=== PATIENT | male | born 1960 | race Caucasian/White ===

== ENCOUNTER 2021-11-03 05:46 | Observation (INO) ==
[2021-11-03] MEDS ORDERED: SODIUM PHOSPHATE ENEMA 133 ML BOTTLE RECTAL ONE (06:00)
[2021-11-03] MEDS ORDERED: ALVIMOPAN 12 MG CAPSULE PO ONE (06:00)
[2021-11-03] MEDS ORDERED: cefTRIAXone 1,000 MG in SODIUM CHLORIDE 0.9% 100 ML IV ONE (06:00)
[2021-11-03] MEDS ORDERED: fentaNYL 100 MCG/2 ML VIAL ONE ×2 (06:20→10:24)
[2021-11-03] MEDS ORDERED: ROCURONIUM 50 MG/5 ML VIAL IV ONE (06:25)
[2021-11-03] MEDS ORDERED: SUCCINYLCHOLINE 200 MG/10 ML VIAL ONE (06:25)
[2021-11-03] MEDS ORDERED: LIDOCAINE 2% 5 ML VIAL ONE (06:25)
[2021-11-03] MEDS ORDERED: propofoL 200 MG/20 ML VIAL IV ONE ×2 (06:25→09:30)
[2021-11-03] MEDS ORDERED: ONDANSETRON 4 MG/2 ML VIAL ONE (06:25)
[2021-11-03] MEDS ORDERED: MIDAZOLAM 2 MG/2 ML VIAL ONE (06:30)
[2021-11-03] MEDS ORDERED: FAMOTIDINE 20 MG TABLET ONE (06:38)
[2021-11-03] MEDS ORDERED: FAMOTIDINE 20 MG TABLET PO ONE (06:44)
[2021-11-03] MEDS: LACTATED RINGERS 1,000 ML IV SCH (06:45)
[2021-11-03] MEDS ORDERED: ePHEDrine 50 MG/ML VIAL ONE ×2 (08:04→12:23)
[2021-11-03 08:30] LABS: Hyaline Casts,Urine 1 /LPF (0-3); Mucus,Urine Occasional /LPF (Occasional); RBC,Urine 15-20 /HPF (0-4); Squamous Epithelial Cell,Urine Occasional /HPF (0-10)
[2021-11-03 08:31] LABS: Bilirubin,Urine Negative (Negative); Glucose,Urine (UA) Negative (Negative); Ketones,Urine Negative (Negative); Nitrite,Urine Negative (Negative); Protein,Urine Negative (Negative); Urine Appearance Clear (Clear); Urine Color Yellow (Yellow); Urine Specific Gravity > 1.030 (1.001-1.035); Urine pH 5.5 (4.5-8.0)
[2021-11-03 08:32] LABS: Blood, Urine Small mg/dL (Negative); Urine Urobilinogen 0.2 eU/dL (<2.0)
[2021-11-03] MEDS ORDERED: SEVOFLURANE 1 UNIT/15 MINUTE INH ONE ×8 (09:30→11:21)
[2021-11-03] MEDS ORDERED: ACETAMINOPHEN INJ 1,000 MG/100 ML VIAL IV ONE (09:40)
[2021-11-03] MEDS ORDERED: SUGAMMADEX 200 MG/2 ML VIAL IV ONE (11:03)
[2021-11-03] MEDS ORDERED: ONDANSETRON 4 MG/2 ML VIAL IV PRN ×2 (11:10→12:00)
[2021-11-03] MEDS ORDERED: HYDROmorphone 1 MG/1 ML SYRINGE IV PRN (11:13)
[2021-11-03] MEDS ORDERED: MEPERIDINE 50 MG/1 ML VIAL IV PRN (12:00)
[2021-11-03] MEDS ORDERED: PROMETHAZINE INJ 25 MG in SODIUM CHLORIDE 0.9% 50 ML IV PRN (12:00)
[2021-11-03] MEDS ORDERED: diphenhydrAMINE 50 MG/1 ML VIAL IV PRN (12:00)
[2021-11-03] MEDS ORDERED: ALBUTEROL/IPRATROPIUM 3 ML NEB RESP TX ONE (12:06)
[2021-11-03] MEDS: SODIUM CHLORIDE 0.9% 1,000 ML IV SCH ×2 (12:15→21:07)
[2021-11-03] MEDS: HYDROmorphone 1 MG/1 ML SYRINGE IV PRN ×2 (12:20→12:25)
[2021-11-03] MEDS: GABAPENTIN 400 MG CAPSULE PO SCH ×2 (14:15→21:01)
[2021-11-03] MEDS: OXYBUTYNIN XL 10 MG TABLET PO SCH (14:15)
[2021-11-03] MEDS ORDERED: FENOFIBRATE 160 MG TABLET PO SCH (21:00)
[2021-11-03] MEDS ORDERED: allopurinoL 300 MG TABLET PO SCH (21:00)
[2021-11-03] MEDS ORDERED: amLODIPine 10 MG TABLET PO SCH (21:00)
[2021-11-03] MEDS ORDERED: ENALAPRIL 20 MG TABLET PO SCH (21:00)
[2021-11-03] MEDS: oxyCODONE/ACETAMINOPHEN 5-325 MG TABLET PO PRN (21:02)
[2021-11-04] MEDS: SODIUM CHLORIDE 0.9% 1,000 ML IV SCH ×2 (06:20→10:19)
[2021-11-04] MEDS: oxyCODONE/ACETAMINOPHEN 5-325 MG TABLET PO PRN (06:20)
[2021-11-04] MEDS ORDERED: PANTOPRAZOLE 40 MG TABLET PO SCH (09:00)
[2021-11-04] MEDS: OXYBUTYNIN XL 10 MG TABLET PO SCH ×2 (09:23→10:03)
[2021-11-04] MEDS: GABAPENTIN 400 MG CAPSULE PO SCH (09:24)
[2021-11-04] MEDS: LACTATED RINGERS 1,000 ML IV SCH (10:19)
[2021-11-04 12:02] VITALS: BP 152/80
== END 2021-11-04 11:15 | disposition home or self-care (01) ==
LOC: INTOOBSV 05:46 → N.SDSINP 05:46 → N.3E 12:54
PROVIDERS: ADMIT Urology; ATTEND Urology

== ENCOUNTER 2021-12-31 05:17 | Inpatient (IN) ==
[2021-12-31] MEDS ORDERED: LACTATED RINGERS 1,000 ML IV ONE (05:35)
[2021-12-31 05:58] LABS: Basophils # 0.1 10*3/uL (0.0-0.2); Basophils % 0.2 % (0.0-0.8); Hematocrit 39.8 VOL% (42.0-52.0); Hemoglobin 12.5 GM/DL (14.0-18.0); Immature Granulocytes % 6.3 %; Immature Granulocytes Absolute 2.21 #; Lymphocytes # 1.4 10*3/uL (1.4-4.0); Mean Corpuscular HGB Conc 31.4 GM/DL (32-36); Mean Corpuscular Volume 94.8 FL (87-102); Mean Platelet Volume 12.3 FL (9.6-12.0); Monocytes # 1.2 10*3/uL (0.11-0.8); Monocytes % 3.4 % (1.7-12.7); Neutrophils % 86.1 % (38.7-73.9); Platelet Count 205 T/CUMM (130-400); Red Cell Distribution Width 15.7 % (9.3-17.3); White Blood Count 34.9 T/CUMM (4-12)
[2021-12-31 06:09] LABS: INR 1.3; PT Patient Result 13.9 SECS (10.1-12.1)
[2021-12-31] MEDS ORDERED: cefTRIAXone 2,000 MG in SODIUM CHLORIDE 0.9% 100 ML IV ONE (06:16)
[2021-12-31] MEDS ORDERED: VANCOMYCIN INJ 1,750 MG in SODIUM CHLORIDE 0.9% 250 ML IV STA (06:17)
[2021-12-31 06:22] LABS: Lactic Acid 6.5 MMOL/L (0.4-2.0)
[2021-12-31] MEDS ORDERED: VANCOMYCIN INJ 1,750 MG in SODIUM CHLORIDE 0.9% 500 ML IV STA (06:22)
[2021-12-31] MEDS ORDERED: SODIUM CHLORIDE 0.9% 1,000 ML IV STA ×2 (06:22→07:28)
[2021-12-31 06:34] LABS: Alanine Aminotransferase 22 U/L (16-61); Albumin 3.1 G/DL (3.4-5.0); Alkaline Phosphatase 58 U/L (45-117); Aspartate Amino Transferase 19 U/L (0-37); Blood Urea Nitrogen 36 MG/DL (7-18); Calcium 8.8 MG/DL (8.5-10.1); Carbon Dioxide 21 MMOL/L (21-32); Chloride 107 MMOL/L (98-107); Glucose 117 MG/DL (74-106); Osmolality,Calculated 287.4 MOS/KG (273-304); Sodium 140 MMOL/L (136-145); Total Protein 6.8 G/DL (6.4-8.2)
[2021-12-31 06:49] LABS: Band Neutrophils 18 % (0-10); Burr Cells Few; Lymphocytes 5 % (20-55); Metamyelocytes 5 %; Platelet Estimate Normal; Total Cells Counted 100
[2021-12-31] MEDS ORDERED: NOREPINEPHRINE 8 MG in SODIUM CHLORIDE 0.9% 242 ML IV PRN (07:28)
[2021-12-31] MEDS ORDERED: ALBUTEROL 2.5 MG/3 ML NEB RESP TX PRN (07:39)
[2021-12-31 08:01] LABS: Mucus,Urine Moderate /LPF (Occasional); RBC,Urine 13 /HPF (0-4); Squamous Epithelial Cell,Urine Occasional /HPF (0-10); Urine Appearance Slightly Cloudy (Clear); Urine Color Amber (Yellow)
[2021-12-31 08:02] LABS: Glucose,Urine (UA) 100 mg/dL (Negative); Ketones,Urine Trace mg/dL (Negative); Nitrite,Urine Positive (Negative); Protein,Urine >=300 mg/dL (Negative); Urine Specific Gravity > 1.030 (1.001-1.035)
[2021-12-31 08:03] LABS: Bilirubin,Urine Moderate mg/dL (Negative); Blood, Urine Trace mg/dL (Negative)
[2021-12-31 08:34] LABS: Barbiturates Screen,Urine Negative (Negative); Benzodiazepines Screen,Urine Negative (Negative); Cannabinoid Screen,Urine Negative (Negative); Opiate Screen,Urine Negative (Negative); Phencyclidine Screen,Urine Negative (Negative)
[2021-12-31] MEDS: FAMOTIDINE 20 MG/2 ML VIAL IV SCH ×2 (08:50→20:40)
[2021-12-31] MEDS: MEROPENEM 500 MG in SODIUM CHLORIDE 0.9% 100 ML IV SCH ×2 (09:19→20:40)
[2021-12-31] MEDS: HYDROmorphone 1 MG/1 ML SYRINGE IV PRN ×2 (16:18→22:00)
[2021-12-31] MEDS: metroNIDAZOLE INJ 500 MG/100 ML PREMIX IV SCH (16:27)
[2021-12-31] MEDS: ONDANSETRON 4 MG/2 ML VIAL IV PRN (22:00)
[2022-01-01] MEDS: metroNIDAZOLE INJ 500 MG/100 ML PREMIX IV SCH ×2 (02:39→15:46)
[2022-01-01 04:12] LABS: Basophils % 0.2 % (0.0-0.8); Hematocrit 37.3 VOL% (42.0-52.0); Hemoglobin 12.1 GM/DL (14.0-18.0); Immature Granulocytes % 7.5 %; Immature Granulocytes Absolute 1.73 #; Lymphocytes # 0.5 10*3/uL (1.4-4.0); Lymphocytes % 2.1 % (21.2-54.2); Mean Corpuscular HGB Conc 32.4 GM/DL (32-36); Mean Corpuscular Volume 92.8 FL (87-102); Mean Platelet Volume 11.4 FL (9.6-12.0); Monocytes # 0.4 10*3/uL (0.11-0.8); Monocytes % 1.9 % (1.7-12.7); Neutrophils % 88.3 % (38.7-73.9); Platelet Count 165 T/CUMM (130-400); Red Blood Count 4.02 MC/CUMM (3.8-5.5); Red Cell Distribution Width 15.5 % (9.3-17.3)
[2022-01-01 04:31] LABS: Band Neutrophils 3 % (0-10); Lymphocytes 5 % (20-55); Platelet Estimate Adequate; Total Cells Counted 100
[2022-01-01 04:49] LABS: Albumin 2.5 G/DL (3.4-5.0); Bilirubin,Total 0.4 MG/DL (0.20-1.00); Calcium 8.6 MG/DL (8.5-10.1); Osmolality,Calculated 288.7 MOS/KG (273-304); Risk Ratio 5.94; Thyroid Stimulating Hormone 0.864 uIU/ml (0.358-3.74); Total Protein 6.4 G/DL (6.4-8.2); VLDL Cholesterol 21.2 MG/DL
[2022-01-01] MEDS ORDERED: MAGNESIUM SULF RIDER 2 GM/50 ML PREMIX IV PRN (05:23)
[2022-01-01] MEDS ORDERED: MAGNESIUM SULF RIDER 4 GM/100 ML PREMIX IV PRN (05:23)
[2022-01-01] MEDS: PHENOL 1.4% THROAT SPRAY 177 ML BOTTLE PO PRN (06:46)
[2022-01-01] MEDS: FAMOTIDINE 20 MG/2 ML VIAL IV SCH ×2 (08:35→20:35)
[2022-01-01] MEDS: MEROPENEM 500 MG in SODIUM CHLORIDE 0.9% 100 ML IV SCH ×3 (08:36→23:50)
[2022-01-01] MEDS: HYDROmorphone 1 MG/1 ML SYRINGE IV PRN (13:23)
[2022-01-01] MEDS: APIXABAN 5 MG TABLET PO SCH ×2 (14:09→20:38)
[2022-01-01] MEDS: oxyCODONE/ACETAMINOPHEN 5-325 MG TABLET PO PRN (20:35)
[2022-01-01] MEDS: allopurinoL 300 MG TABLET PO SCH (20:38)
[2022-01-02] MEDS: metroNIDAZOLE INJ 500 MG/100 ML PREMIX IV SCH ×2 (03:42→14:31)
[2022-01-02] MEDS: oxyCODONE/ACETAMINOPHEN 5-325 MG TABLET PO PRN ×2 (05:34→17:58)
[2022-01-02 05:52] LABS: Basophils % 0.2 % (0.0-0.8); Eosinophils # 0.2 10*3/uL (0.0-0.87); Hematocrit 36.1 VOL% (42.0-52.0); Hemoglobin 11.4 GM/DL (14.0-18.0); Immature Granulocytes % 0.5 %; Immature Granulocytes Absolute 0.08 #; Lymphocytes # 0.4 10*3/uL (1.4-4.0); Lymphocytes % 2.3 % (21.2-54.2); Mean Corpuscular HGB Conc 31.6 GM/DL (32-36); Mean Platelet Volume 11.9 FL (9.6-12.0); Monocytes # 0.8 10*3/uL (0.11-0.8); Monocytes % 4.7 % (1.7-12.7); Neutrophils % 91.3 % (38.7-73.9); Platelet Count 164 T/CUMM (130-400); Red Blood Count 3.88 MC/CUMM (3.8-5.5); Red Cell Distribution Width 15.9 % (9.3-17.3); White Blood Count 17.3 T/CUMM (4-12)
[2022-01-02 06:23] LABS: Calcium 8.6 MG/DL (8.5-10.1); Osmolality,Calculated 295.3 MOS/KG (273-304); Potassium 3.6 MMOL/L (3.5-5.1)
[2022-01-02 06:45] LABS: Band Neutrophils 1 % (0-10); Platelet Estimate Adequate; Total Cells Counted 100
[2022-01-02] MEDS: MEROPENEM 500 MG in SODIUM CHLORIDE 0.9% 100 ML IV SCH (07:39)
[2022-01-02] MEDS: FAMOTIDINE 20 MG/2 ML VIAL IV SCH ×2 (07:40→21:00)
[2022-01-02] MEDS: APIXABAN 5 MG TABLET PO SCH ×2 (08:55→21:55)
[2022-01-02] MEDS ORDERED: MEROPENEM 500 MG in SODIUM CHLORIDE 0.9% 100 ML IV SCH (14:00)
[2022-01-02] MEDS: LACTATED RINGERS 1,000 ML IV SCH (15:00)
[2022-01-02] MEDS ORDERED: LEVOFLOXACIN INJ 750 MG/150 ML PREMIX IV SCH (16:00)
[2022-01-02] MEDS: ONDANSETRON 4 MG/2 ML VIAL IV PRN (17:59)
[2022-01-02] MEDS: allopurinoL 300 MG TABLET PO SCH (21:55)
[2022-01-02] MEDS: FLUTICASONE 50 MCG NASAL SPRAY 16 GM BOTTLE BOTH NARES SCH (21:55)
[2022-01-03] MEDS: LACTATED RINGERS 1,000 ML IV SCH ×3 (02:16→22:18)
[2022-01-03 04:51] LABS: Basophils % 0.2 % (0.0-0.8); Eosinophils # 0.4 10*3/uL (0.0-0.87); Eosinophils % 2.6 % (0.00-10.9); Hematocrit 35.5 VOL% (42.0-52.0); Hemoglobin 11.5 GM/DL (14.0-18.0); Immature Granulocytes Absolute 0.14 #; Lymphocytes # 0.6 10*3/uL (1.4-4.0); Mean Corpuscular HGB Conc 32.4 GM/DL (32-36); Mean Platelet Volume 11.7 FL (9.6-12.0); Monocytes # 1.1 10*3/uL (0.11-0.8); Monocytes % 7.9 % (1.7-12.7); Neutrophils % 84.3 % (38.7-73.9); Platelet Count 180 T/CUMM (130-400); Red Cell Distribution Width 15.8 % (9.3-17.3); White Blood Count 14.1 T/CUMM (4-12)
[2022-01-03 05:11] LABS: Eosinophils 1 % (0-10); Lymphocytes 8 % (20-55); Platelet Estimate Adequate; Total Cells Counted 100
[2022-01-03 05:20] LABS: Calcium 8.8 MG/DL (8.5-10.1); Potassium 3.7 MMOL/L (3.5-5.1)
[2022-01-03] MEDS: FLUTICASONE 50 MCG NASAL SPRAY 16 GM BOTTLE BOTH NARES SCH ×2 (08:41→22:17)
[2022-01-03] MEDS: FAMOTIDINE 20 MG/2 ML VIAL IV SCH ×2 (08:41→22:16)
[2022-01-03] MEDS: APIXABAN 5 MG TABLET PO SCH ×2 (08:41→22:17)
[2022-01-03] MEDS: LINEZOLID INJ 600 MG/300 ML PREMIX IV SCH (14:54)
[2022-01-03] MEDS: allopurinoL 300 MG TABLET PO SCH (22:17)
[2022-01-03] MEDS: oxyCODONE/ACETAMINOPHEN 5-325 MG TABLET PO PRN (22:20)
[2022-01-04] MEDS: LINEZOLID INJ 600 MG/300 ML PREMIX IV SCH ×2 (01:19→13:09)
[2022-01-04 05:06] LABS: Basophils % 0.3 % (0.0-0.8); Eosinophils # 0.3 10*3/uL (0.0-0.87); Hematocrit 39.3 VOL% (42.0-52.0); Hemoglobin 12.4 GM/DL (14.0-18.0); Immature Granulocytes % 1.7 %; Immature Granulocytes Absolute 0.23 #; Lymphocytes # 0.9 10*3/uL (1.4-4.0); Lymphocytes % 6.4 % (21.2-54.2); Mean Corpuscular HGB Conc 31.6 GM/DL (32-36); Mean Corpuscular Volume 92.5 FL (87-102); Mean Platelet Volume 12.1 FL (9.6-12.0); Monocytes # 1.7 10*3/uL (0.11-0.8); Neutrophils % 77.6 % (38.7-73.9); Platelet Count 192 T/CUMM (130-400); Red Blood Count 4.25 MC/CUMM (3.8-5.5); Red Cell Distribution Width 15.9 % (9.3-17.3); White Blood Count 13.8 T/CUMM (4-12)
[2022-01-04 05:32] LABS: Calcium 8.9 MG/DL (8.5-10.1); Osmolality,Calculated 287.3 MOS/KG (273-304); Potassium 4.1 MMOL/L (3.5-5.1)
[2022-01-04] MEDS: FLUTICASONE 50 MCG NASAL SPRAY 16 GM BOTTLE BOTH NARES SCH ×2 (08:56→21:23)
[2022-01-04] MEDS: FAMOTIDINE 20 MG/2 ML VIAL IV SCH ×2 (08:56→21:22)
[2022-01-04] MEDS: APIXABAN 5 MG TABLET PO SCH ×2 (08:56→21:23)
[2022-01-04] MEDS: LACTATED RINGERS 1,000 ML IV SCH ×2 (08:57→21:21)
[2022-01-04] MEDS: allopurinoL 300 MG TABLET PO SCH (21:23)
[2022-01-04] MEDS: PHENOL 1.4% THROAT SPRAY 177 ML BOTTLE PO PRN (21:23)
[2022-01-04] MEDS: oxyCODONE/ACETAMINOPHEN 5-325 MG TABLET PO PRN (21:23)
[2022-01-05] MEDS: LINEZOLID INJ 600 MG/300 ML PREMIX IV SCH ×2 (00:22→14:36)
[2022-01-05 05:28] LABS: Basophils % 0.3 % (0.0-0.8); Eosinophils # 0.5 10*3/uL (0.0-0.87); Eosinophils % 4.9 % (0.00-10.9); Hematocrit 36.7 VOL% (42.0-52.0); Hemoglobin 11.6 GM/DL (14.0-18.0); Immature Granulocytes % 4.4 %; Immature Granulocytes Absolute 0.42 #; Lymphocytes # 1.3 10*3/uL (1.4-4.0); Lymphocytes % 13.2 % (21.2-54.2); Mean Corpuscular HGB Conc 31.6 GM/DL (32-36); Mean Corpuscular Volume 92.7 FL (87-102); Mean Platelet Volume 11.7 FL (9.6-12.0); Monocytes # 1.2 10*3/uL (0.11-0.8); Monocytes % 12.4 % (1.7-12.7); Neutrophils % 64.8 % (38.7-73.9); Platelet Count 205 T/CUMM (130-400); Red Blood Count 3.96 MC/CUMM (3.8-5.5); Red Cell Distribution Width 15.7 % (9.3-17.3); White Blood Count 9.5 T/CUMM (4-12)
[2022-01-05] MEDS: LACTATED RINGERS 1,000 ML IV SCH ×3 (05:43→23:37)
[2022-01-05 05:50] LABS: Calcium 8.6 MG/DL (8.5-10.1); Osmolality,Calculated 288.8 MOS/KG (273-304); Potassium 3.6 MMOL/L (3.5-5.1)
[2022-01-05] MEDS: APIXABAN 5 MG TABLET PO SCH ×2 (09:05→21:06)
[2022-01-05] MEDS: FLUTICASONE 50 MCG NASAL SPRAY 16 GM BOTTLE BOTH NARES SCH ×2 (09:05→21:06)
[2022-01-05] MEDS: FAMOTIDINE 20 MG/2 ML VIAL IV SCH ×2 (09:05→21:10)
[2022-01-05] MEDS: allopurinoL 300 MG TABLET PO SCH (21:05)
[2022-01-05] MEDS: GABAPENTIN 400 MG CAPSULE PO SCH (21:05)
[2022-01-05] MEDS: oxyCODONE/ACETAMINOPHEN 5-325 MG TABLET PO PRN (21:06)
[2022-01-06] MEDS: LINEZOLID INJ 600 MG/300 ML PREMIX IV SCH (01:04)
[2022-01-06 05:12] LABS: Basophils % 0.4 % (0.0-0.8); Eosinophils # 0.4 10*3/uL (0.0-0.87); Hematocrit 39.7 VOL% (42.0-52.0); Hemoglobin 12.6 GM/DL (14.0-18.0); Immature Granulocytes % 5.2 %; Immature Granulocytes Absolute 0.49 #; Lymphocytes # 1.3 10*3/uL (1.4-4.0); Lymphocytes % 13.8 % (21.2-54.2); Mean Corpuscular HGB Conc 31.7 GM/DL (32-36); Mean Corpuscular Volume 92.3 FL (87-102); Mean Platelet Volume 11.3 FL (9.6-12.0); Monocytes # 0.8 10*3/uL (0.11-0.8); Monocytes % 8.3 % (1.7-12.7); Neutrophils % 68.3 % (38.7-73.9); Platelet Count 249 T/CUMM (130-400); Red Cell Distribution Width 15.5 % (9.3-17.3); White Blood Count 9.4 T/CUMM (4-12)
[2022-01-06 05:30] LABS: Osmolality,Calculated 289.7 MOS/KG (273-304); Potassium 3.6 MMOL/L (3.5-5.1)
[2022-01-06 05:42] LABS: Eosinophils 5 % (0-10); Lymphocytes 12 % (20-55); Platelet Estimate Adequate; Total Cells Counted 100
[2022-01-06] MEDS: APIXABAN 5 MG TABLET PO SCH (08:44)
[2022-01-06] MEDS: GABAPENTIN 400 MG CAPSULE PO SCH (08:44)
[2022-01-06] MEDS: FAMOTIDINE 20 MG/2 ML VIAL IV SCH (08:44)
[2022-01-06] MEDS: FLUTICASONE 50 MCG NASAL SPRAY 16 GM BOTTLE BOTH NARES SCH (08:49)
[2022-01-06 09:01] VITALS: BP 150/84
[2022-01-06] MEDS: LACTATED RINGERS 1,000 ML IV SCH (12:29)
== END 2022-01-06 12:30 | disposition home or self-care (01) | DRG 871 ==
LOC: N.ED 05:17 → SUATTDRO 07:40 → N.EDINP 07:40 → N.ICU 19:14 → N.3E 01-03 19:06
PROVIDERS: ADMIT Internal Medicine; ATTEND Internal Medicine